=== PATIENT | female | born 1960 | race Caucasian/White ===

== ENCOUNTER → 2017-08-14 | Outpatient (REF) | payer BC ==
[~2017-08-14] MED LIST: AMOX-559 PO; ASP325 PO; AZIT-1 PO; BACDS PO; CALC-1046 PO; CALC-18 PO; CALC500T42 PO; CALC500T6 PO; CARI250T10 PO; CEP500 PO; CIDE300T4 PO; CIP500 PO; CIPR-344 PO; CLOT15CR64 TOP; CODE118S5 PO; CRAN400T PO; CYC10 PO; CYCL10TA29 PO; DUONEB INH; FAM20 PO; FAMO20TA28 PO; FIO PO; FLUT16SP20 NS; HYDR-317 PO; HYDR-4309 PO; HYDR50CA47 PO; IBU600 PO; IBUP600T22 PO; KET10 PO; LEV500 PO; LEVO750T44 PO; LISI-353 PO; LOR5/325 PO; LORA1TAB69 PO; MAGN27TA6 PO; MAGN400T36 PO; NAPR-1043 PO; OXYIR PO; PANT20TA27 PO; PANT40TA65 PO; PHEN200T32 PO; PHENA200 PO; POTA20TA85 PO; POTA99TA15 PO; POTA99TA6 PO; PRE5 PO; PRED-1 PO; PROAIRPT IH; PROM-110 PO; RANI75TA5 PO; SUCR1TAB51 PO; SUCR1TAB85 PO; TRA50 PO; TRAM-420 PO; TRAM-627 PO; ZOLP-350 PO; [UNRECOGNIZED DRUG - CODE] PO; [UNRECOGNIZED DRUG - OTHER] TOP
== END ==
LOC: ZZSENDIN 12:00
PROVIDERS: ATTEND Surgery
DX: D22.9 Melanocytic nevi, unspecified (principal)
CPT/HCPCS: 88305

== ENCOUNTER 2017-08-20 02:00 | Day surgery (SDC) | payer BC ==
[~2017-08-20] VITALS: Ht 160 cm; Wt 95.3 kg
[2017-08-20 06:15] VITALS: BP 133/53
[2017-08-20] MEDS ORDERED: NORMOSOL R SOLN(*) 1000 ML BAG 1,000 ML IV PRN (06:30)
[2017-08-20] MEDS ORDERED: LIDOCAINE/SOD BICARB 8.4% SYR ID ONE (06:30)
[2017-08-20] MEDS ORDERED: PROPOFOL EMUL(*) 10MG/ML 20 ML 20 ML ONE ×2 (07:06→07:34)
[2017-08-20 07:44] VITALS: BP 113/90
--- NOTE | 2017-08-20 07:47 | Post Operative Progress Note ---
Post Operative Progress Note Date: August 20, 2017 Time: 07:46 Surgeon: flor Anesthesia: dr morfin Pre-Op Diagnosis: epigastric pain Post-Op Diagnosis: large hiatal hernia Procedure(s): egd MERYL LILLY MD August 20, 2017 07:47
[2017-08-20 07:53] VITALS: BP 103/55
--- NOTE | 2017-08-20 08:26 | Short(Outpt) Discharge Summary ---
Discharge Summary Reason for Hosp/Final Diag: (1) Epigastric pain Hospital Course & Plan: large hiatal hernia Departure Discharge to: Home Discharge Instructions Home Meds Active Scripts Pantoprazole Sodium (PANTOPRAZOLE SODIUM) 40 Mg Tablet.dr, 40 MG PO BID, #60 TAB.SR Prov:VICKIE MESSINA MD 03/04/17 Sucralfate (SUCRALFATE) 1 Gm Tablet, 1 GM PO ACHS1, #120 TAB Prov:VICKIE MSESINA MD 03/04/17 Reported Medications Potassium Gluconate (POTASSIUM) 99 Mg Tablet, 99 MG PO DAILY 03/04/17 Magnesium Oxide (MAGNESIUM OXIDE) 400 Mg Tablet, 400 MG PO DAILY 03/04/17 Clotrimazole/Betamethasone Dip (CLOTRIMAZOLE-BETAMETHASONE CRM) 15 Gm Cream..g. , 1 SHERWIN TOP BID 03/03/17 Calcium Carbonate (CALCIUM) 500 Mg Tablet, PO PRN Y for leg cramps 06/09/15 Lisinopril/Hydrochlorothiazide (LISINOPRIL-HCTZ 20-12.5 MG TAB) 1 Each Tablet, 0.5 TAB PO BID, #30 08/07/14 Fluticasone Propionate (Flonase) 16 Gm [place], 2 SHERWIN NS DAILY, 0 Refills 05/30/09 Discontinued Reported Medications Tramadol Hcl (ULTRAM) 50 Mg Tablet, 50-100 MG PO Q4-6H, TAB 08/26/15 Diet: Regular Activity: As Tolerated MERYL LILLY MD August 20, 2017 08:26
--- NOTE | 2017-08-20 14:13 | OPERATIVE REPORT 1 ---
EVENT DATE: August 20, 2017 SURGEON: Edgard Carlos MD ANESTHESIOLOGIST: Tavo Nair MD ANESTHESIA: Sedation. PREOPERATIVE DIAGNOSIS Epigastric pain. POSTOPERATIVE DIAGNOSIS Large hiatal hernia. PROCEDURE PERFORMED Esophagogastroduodenoscopy. DESCRIPTION OF PROCEDURE Patient placed in the left lateral decubitus position, given intravenous sedation. Flexible gastroscope was inserted. Proximal esophagus distended nicely. The GE junction was at 32 cm and distinct. No ulceration, inflammation. No narrowings. We entered the stomach, which is empty, passed through the pylorus and the second and third portions of the duodenum which were normal. Duodenal bulb was normal. Pylorus was normal. Antrum was normal. Body of stomach appeared to be normal. Scope was retroflexed. I could not identify any erosions, inflammation, ulcerations in the proximal stomach. She had a large hiatal hernia present, but no lesions in the herniated portion. Patient tolerated the procedure well. There were no apparent complications. [facility]
== END 2017-08-20 09:00 | disposition home or self-care (01) ==
LOC: OR 02:00
PROVIDERS: ATTEND Surgery
DX: K44.9 Diaphragmatic hernia without obstruction or gangrene (principal)
CPT/HCPCS: 43235; J2704

== ENCOUNTER → 2018-04-23 | Outpatient (CLI) | payer BC ==
[~2018-04-23] MED LIST changes: -HYDR-4309 PO; +HYDR-653 PO; -RANI75TA5 PO; +RANI75TA51 PO
--- NOTE | 2018-04-23 15:11 | RADIOLOGY IMAGING REPORT ---
FACILITY: [facility] - [place] PATIENT NAME: Sage Leach : 1960 MR: [id number] V: [id number] EXAM DATE: ORDERING PHYSICIAN: KELVIN LARA TECHNOLOGIST: Location: [facility] - [place] Patient: Sage Leach : 1960 Visit/Account:[id number] Date of Sevice: 04/23/2018 DEXA Scan Clinical history: Menopausal and post menopausal disorder. Comparison: DEXA scan from 12/27/2014. LUMBAR SPINE: The bone mineral density (BMD) measured from L1-L4 correlates with a Z-score of -1 and a T-score of - 1.8 which is osteopenia as defined by the World Health Organization. The corresponding risk of fract ure in the lumbar spine is 3-4 times increased compared with a young adult reference population. Thi s value has decrease by 3.2 % since the prior study. More than 5% change is considered significant. HIP: Bone mineral density (BMD) measured in the LEFT total hip region correlates with a Z-score -1.2 and a T-score of -1.8 which is osteopenia as defined by the World Health Organization. The corresponding risk of fracture in the hip is 3-4 times increased compared to a young adult reference population. Th is value has decrease by 9.2 % since the prior study. More than 5% change is considered significant. T score left femoral neck -1.9 Bone mineral density (BMD) measured in the Femoral Neck region measures 0.770 g/cm?. IMPRESSION: 1. Lumbar spine: Osteopenia. There has been 3.2% decrease in the bone mineral density since the pre vious exam. 2. Left Total Hip: Osteopenia. There has been 9.2% decrease in the bone mineral density since the p revious exam. 3. Femoral Neck: Bone Mineral Density is 0.770 g/cm? The next DEXA scan of this patient should include the following sites: L1-L4 and the left hip. FRAX? WHO Fracture Risk Assessment Tool link: <http://www.shef.ac.uk/FRAX/tool.jsp?locationValue=9> PLEASE NOTE: 1) The World Health Organization defines low BMD as follows: T-score Normal > -1 Osteopenia < -1 and > -2.5 Osteoporosis < -2.5 without fractures Established osteoporosis < -2.5 with fractures 2) In general, you may wish to consider: Diagnosis Treatment Follow-up DEXA Normal BMD Prevention 2-3 years Osteopenia Prevention/therapy 1-2 years Osteoporosis Therapy Yearly 3) Fracture risk estimated from the T-score is more accurate for vertebral fractures (often spontane ous) than for hip fractures. Report Dictated By: Christine Neff MD at 04/23/2018 3:03 PM Report E-Signed By: Christine Neff MD at 04/23/2018 3:04 PM PAMELAN:[email or web address]
--- NOTE | 2018-04-24 08:48 | RADIOLOGY IMAGING REPORT ---
FACILITY: [facility] - [place], [place] PATIENT NAME: JANNET SHEN : [id number] MR: [id number] V: [id number] EXAM DATE: ORDERING PHYSICIAN: KELVIN LARA TECHNOLOGIST: Shalonda Brito PROCEDURE:BILATERAL DIGITAL SCREENING MAMMOGRAM WITH CAD ASSISTED INTERPRETATION & 3D TOMOSYNTHESIS COMPARISON:Prior mammograms 04/15/14, 10/29/12. INDICATIONS:SCREENING FINDINGS: The breasts are heterogeneously dense which can obscure small masses. The parenchymal pattern has remained stable allowing for difference in mammographic technique & patient positioning. DIAGNOSTIC CATEGORY 1--NEGATIVE. RECOMMENDATIONS: ROUTINE MAMMOGRAM AND CLINICAL EVALUATION. IMPRESSION: BIRADS 1: Negative. No significant abnormality is seen. Dictated by: Christine Neff M.D. on 04/23/2018 at 16:35 Transcribed by: GABY on 04/24/2018 at 8:20 Approved by: Christine Neff M.D. on 04/24/2018 at 8:47 [facility]
== END ==
LOC: MAMO 00:59
PROVIDERS: ATTEND Physician Assistant
DX: Z12.31 Encounter for screening mammogram for malignant neoplasm of breast (principal); M85.89 Other specified disorders of bone density and structure, multiple sites
CPT/HCPCS: 77063; 77067; 77080

== ENCOUNTER → 2018-10-28 | Outpatient (REF) | payer BC ==
[2018-10-28 14:18] LABS: PLATELET COUNT, AUTOMATED 370 K/uL (150-450)
== END ==
LOC: LAB 13:57
PROVIDERS: ATTEND Physician Assistant
DX: R53.83 Other fatigue (principal); R06.02 Shortness of breath
CPT/HCPCS: 83880; 85025